=== PATIENT | female | born 1975 | race Caucasian/White ===

== ENCOUNTER 2017-11-07 23:02 | Emergency (ER) | payer BC ==
[~2017-11-07] VITALS: Ht 170.2 cm; Wt 62.6 kg
[2017-11-07] MEDS ORDERED: IBUPROFEN 600 MG TAB PO STA (23:07)
[2017-11-07] MEDS ORDERED: ACETAMINOPHEN 325 MG TAB PO ONE (23:15)
[2017-11-07] MEDS ORDERED: CLINDAMYCIN PHOS 600 MG/ 4 ML VIAL IM ONE (23:15)
== END 2017-11-07 23:52 | disposition home or self-care (01) ==
LOC: ER 23:02
DX: L03.113 Cellulitis of right upper limb (principal); M79.621 Pain in right upper arm; M25.521 Pain in right elbow; M79.631 Pain in right forearm; F32.9 Major depressive disorder, single episode, unspecified; F17.210 Nicotine dependence, cigarettes, uncomplicated
CPT/HCPCS: 99282

== ENCOUNTER 2023-12-24 11:11 | Emergency (ER) | payer BC ==
[~2023-12-24] VITALS: Ht 170.2 cm; Wt 62.6 kg
[~2023-12-24 11:11] MED LIST: AMOXICILLI400 MG/5 M PO; AMOXICILLIN500 MG PO
[2023-12-24 12:13] VITALS: PULSE 87; RESP 17; TEMP 98.3; O2SAT 99
[2023-12-24] MEDS ORDERED: METHOCARBAMOL750 MG PO (12:30)
== END 2023-12-24 12:35 | disposition home or self-care (01) ==
LOC: ER 11:44
DX: M54.6 Pain in thoracic spine (principal); S29.012A Strain of muscle and tendon of back wall of thorax, initial encounter; X50.0XXA Overexertion from strenuous movement or load, initial encounter; Y92.89 Other specified places as the place of occurrence of the external cause; F32.A Depression, unspecified; F90.9 Attention-deficit hyperactivity disorder, unspecified type
CPT/HCPCS: 99282